=== PATIENT | male | born 1995 | race Caucasian/White ===

== ENCOUNTER 2016-06-19 14:34 | Emergency (ER) | payer OTHER ==
[2016-06-19 14:37] VITALS: O2SAT 97
[2016-06-19 14:40] VITALS: BMI 37.5
[2016-06-19] MEDS ORDERED: Sodium Chloride 0.9% 1,000 ML IV ONE (14:55)
--- NOTE | 2016-06-19 15:33 | C.PDOC ---
History Of Present Illness 20 year old male with a history of anxiety, presents to the ED with complaints of vague right sided abdominal pain for the past week. Patient states he was unable to go to work because of it. He has had multiple evaluation for vague abdominal pain in the past and notes he stopped drinking soda 3 months ago. Denies vomiting, diarrhea, fever, or any other complaints at this time. Time Seen by Provider: 06/19/16 14:52 Chief Complaint (Nursing): Abdominal Pain History Per: Patient History/Exam Limitations: no limitations Onset/Duration Of Symptoms: Days Current Symptoms Are (Timing): Still Present Severity: Mild Location Of Pain/Discomfort: RUQ, RLQ Radiation Of Pain To:: None Quality Of Discomfort: "Pain" Associated Symptoms: denies: Fever, Vomiting, Back Pain, Urinary Symptoms Past Medical History Reviewed: Historical Data, Nursing Documentation, Vital Signs Vital Signs: Last Vital Signs Temp 98.5 F 06/19/16 14:37 Pulse 57 L 06/19/16 14:37 Resp 18 06/19/16 14:37 BP 147/77 06/19/16 14:37 Pulse Ox 97 06/19/16 16:33 - Medical History PMH: Anxiety Family History: States: Unknown Family Hx - Social History Hx Tobacco Use: No Hx Alcohol Use: No Hx Substance Use: No - Immunization History Hx Tetanus Toxoid Vaccination: Yes Hx Influenza Vaccination: Yes (2016) Hx Pneumococcal Vaccination: No Review Of Systems Except As Marked, All Systems Reviewed And Found Negative. Constitutional: Negative for: Fever, Chills Cardiovascular: Negative for: Chest Pain Respiratory: Negative for: Shortness of Breath Gastrointestinal: Positive for: Abdominal Pain. Negative for: Vomiting, Diarrhea Neurological: Negative for: Weakness, Numbness Physical Exam - Physical Exam Appears: Non-toxic, No Acute Distress, Other (+Obese) Skin: Normal Color, Warm, Dry Head: Atraumatic, Normacephalic Eye(s): bilateral: Normal Inspection Oral Mucosa: Moist Chest: Symmetrical Cardiovascular: Rhythm Regular Respiratory: Normal Breath Sounds, No Accessory Muscle Use Gastrointestinal/Abdominal: Soft, No Tenderness, No Distention, No Guarding, No Rebound, Other (+Right abdomen dull to percussion. Negative Elmore's sign and McBurney's Point tenderness) Extremity: Normal ROM Neurological/Psych: Oriented x3, Normal Speech, Normal Cognition ED Course And Treatment - Laboratory Results Result Diagrams: 06/19/16 15:58 06/19/16 16:00 Lab Interpretation: Normal (ua neg, tox + THC) O2 Sat by Pulse Oximetry: 97 (Room air) Pulse Ox Interpretation: Normal - Radiology CXR: Interpreted by Me CXR Interpretation: Yes: No Acute Disease - Other Rad abd x 2 X-Ray: Interpreted by Me (+increased fecalization R side.) Progress Note: Obstructive series, Blood work, and Urinalysis ordered and reviewed. Patient treated with Toradol and IV fluids. Reevaluation Time: 16:32 Reassessment Condition: Improved (remains benign) Medical Decision Making Medical Decision Making: chronic constipation, marijuana use. Disposition Doctor Will See Patient In The: Office Counseled Patient/Family Regarding: Studies Performed, Diagnosis - Disposition Referrals: Mabel Fitch MD [Staff Provider] - Disposition: HOME/ ROUTINE Disposition Time: 16:33 Condition: GOOD Additional Instructions: trial a laxative (drink a bottle of Mag Citrate) and re-evaluate your abdominal discomfort after using the bathroom 2-3 times eat 7 servings of fresh fruits and vegetables daily. Fast walk 45 mins/day x 5 days a a week- helps with gastric motility. Stool softners to help prevent constipation. Instructions: Constipation (ED) - Clinical Impression Clinical Impression: Abdominal colic - Scribe Statement The provider has reviewed the documentation as recorded by the Scribe Blessing Alfonso. Provider Attestation: All medical record entries made by the Scribe were at my direction and personally dictated by me. I have reviewed the chart and agree that the record accurately reflects my personal performance of the history, physical exam, medical decision making, and the department course for this patient. I have also personally directed, reviewed, and agree with the discharge instructions and disposition.
[2016-06-19 15:58] LABS: RBC URINE < 1 /hpf (0-3); URINE BILIRUBIN NEGATIVE (NEGATIVE); URINE BLOOD NEGATIVE (NEGATIVE); URINE COLOR Yellow (YELLOW); URINE GLUCOSE (UA) NORMAL (Normal); URINE KETONE NEGATIVE (NEGATIVE); URINE LEUKOCYTE ESTERASE NEG Leu/uL (Negative); URINE PROTEIN NEGATIVE (NEGATIVE); URINE UROBILINOGEN NORMAL mg/dL (0.2-1.0); WBC URINE < 1 /hpf (0-5)
[2016-06-19] MEDS ORDERED: Sodium Chloride 0.9% 1,000 ML ONE (15:59)
[2016-06-19 16:07] LABS: BASO % 0.7 % (0.0-2.0); EOS # 0.2 K/uL (0.0-0.7); EOS % 2.2 % (0.0-4.0); HEMATOCRIT 43.8 % (35.0-51.0); LYMPH # 2.2 K/uL (1.0-4.3); MEAN CORPUSCULAR HEMOGLOBIN 28.8 pg (27.0-31.0); MEAN CORPUSCULAR HGB CONC 32.6 g/dL (33.0-37.0); MEAN PLATELET VOLUME 10.3 fL (7.2-11.7); MONO # 0.6 K/uL (0.0-0.8); MONO % 8.9 % (0.0-10.0); RED CELL DISTRIBUTION WIDTH 12.9 % (11.5-14.5)
--- NOTE | 2016-06-19 16:07 | RAD ---
PROCEDURE: Radiographs of the chest and abdomen (obstructive series) HISTORY: abd pain COMPARISON: No prior. TECHNIQUE: AP radiograph of the chest, with upright and supine radiographs of the abdomen. FINDINGS: CHEST: Lungs: Clear. Cardiovascular: Normal size heart. No pulmonary vascular congestion. Pleura: No pleural fluid. No pneumothorax. Other findings: None. ABDOMEN AND PELVIS: Bowel: Constipation without fecal impaction or obstruction. Free air: None. Bones: Unremarkable. Other findings: None. IMPRESSION: No acute findings related to/accounting for the clinical presentation. Concordant results with the preliminary interpretation rendered by the emergency department physician procedure.
[2016-06-19 16:11] LABS: MEAN CELL VOLUME 88.3 fL (80.0-94.0)
[2016-06-19 16:14] LABS: CHLORIDE 105 mmol/L (98-107); POTASSIUM 4.3 mmol/L (3.6-5.2); SODIUM 142 mmol/L (132-148)
[2016-06-19 16:16] LABS: ALB/GLOB RATIO 1.5 (1.0-2.1); ALKALINE PHOSPHATASE 50 U/L (38-126); AST/SGOT 21 U/L (17-59); BILIRUBIN,TOTAL 0.2 mg/dL (0.2-1.3); CARBON DIOXIDE 27 mmol/L (22-30); GFR AFRICAN-AMERICAN > 60; TOTAL PROTEIN 6.9 g/dL (6.3-8.3)
[2016-06-19 16:17] LABS: ALCOHOL SERUM < 10 mg/dl (0-10); ALT/SGPT 29 U/L (21-72); BLOOD UREA NITROGEN 14 mg/dL (9-20); CALCIUM 8.3 mg/dl (8.6-10.4); GLUCOSE,RANDOM 81 mg/dL (75-110)
[2016-06-19 16:49] VITALS: BP 124/71; PULSE 80; RESP 16; TEMP 98.4
== END 2016-06-19 17:10 | disposition home or self-care (01) ==
LOC: C.ER 14:34
DX: R10.84 Generalized abdominal pain (principal)
CPT/HCPCS: 74022; 80053; 80320; 80324; 80345; 80346; 80349; 80353; 80358; 80361; 81001; 83690; 83992; 85025; 96361; 96374; 99284; J1885; J7040

== ENCOUNTER 2017-02-28 23:16 | Emergency (ER) | payer OTHER ==
[2017-02-28 23:17] VITALS: BMI 37.5
--- NOTE | 2017-03-01 01:19 | C.PDOC ---
History Of Present Illness 21 year old male presents to the ED c/o lower back pain that started today. Patient denies trauma, injury, fall, weakness, numbness, incontinence, saddle anesthesia, urinary symptoms, sensory or motor deficits. Time Seen by Provider: 02/28/17 23:42 Chief Complaint (Nursing): Back Pain History Per: Patient History/Exam Limitations: no limitations Onset/Duration Of Symptoms: Hrs Current Symptoms Are (Timing): Still Present Quality Of Discomfort: "Pain" Severity: None Previous Symptoms: Back Pain Associated Symptoms: None Exacerbating Factor(s): Nothing Recent travel outside of the [place]: No Additional History Per: Patient Past Medical History Reviewed: Historical Data, Nursing Documentation, Vital Signs Vital Signs: Last Vital Signs Temp 99.0 F 02/28/17 23:28 Pulse 88 02/28/17 23:28 Resp 20 02/28/17 23:28 BP 125/75 02/28/17 23:28 Pulse Ox 96 03/01/17 01:23 - Medical History PMH: Anxiety Surgical History: No Surg Hx Family History: States: Unknown Family Hx - Social History Hx Tobacco Use: No Hx Alcohol Use: No Hx Substance Use: No - Immunization History Hx Tetanus Toxoid Vaccination: Yes Hx Influenza Vaccination: Yes (2016) Hx Pneumococcal Vaccination: No Review Of Systems Constitutional: Negative for: Fever, Chills Cardiovascular: Negative for: Chest Pain, Palpitations Respiratory: Negative for: Cough, Shortness of Breath Gastrointestinal: Negative for: Nausea, Vomiting, Abdominal Pain Musculoskeletal: Positive for: Back Pain Skin: Negative for: Rash Neurological: Negative for: Weakness, Numbness Physical Exam - Physical Exam Appears: Non-toxic, No Acute Distress Skin: Normal Color, Warm, Dry Head: Atraumatic, Normacephalic Eye(s): bilateral: Normal Inspection Nose: No Discharge, No Deformity Oral Mucosa: Moist Neck: Normal ROM, Supple Chest: Symmetrical Cardiovascular: Rhythm Regular, No Murmur Respiratory: Normal Breath Sounds, No Rales, No Rhonchi, No Wheezing Gastrointestinal/Abdominal: Soft, No Tenderness, No Guarding, No Rebound Back: Straight Leg Raising (positive at 40 degrees), Other (Lumbar tenderness on the right) Extremity: Normal ROM, No Pedal Edema, No Calf Tenderness, Capillary Refill (< 2 seconds), No Deformity, No Swelling Pulses: Left Dorsalis Pedis: Normal, Right Dorsalis Pedis: Normal Neurological/Psych: Oriented x3, Normal Speech, Normal Motor, Normal Sensation Gait: Steady ED Course And Treatment O2 Sat by Pulse Oximetry: 96 (On RA) Pulse Ox Interpretation: Normal - Other Rad LS Spine X-Ray X-Ray: Interpreted by Me, Viewed By Me Interpretation: No acute findings Progress Note: Plan: -Toradol 30 mg IM. -Flexeril 10 mg PO. On reevaluation patient states he feels much better after the medications was given. Patient is sleeping, stable enough for d/c, was advised to folow up with PMD in 1-2 days. Pt understands all return precautions. Reevaluation Time: 02:05 Reassessment Condition: Improved Disposition - Disposition Referrals: Mabel Fitch MD [Staff Provider] - Disposition: HOME/ ROUTINE Disposition Time: 02:06 Condition: STABLE Additional Instructions: Take meds as directed Follow up with PMD Return to ER if worse Prescriptions: Cyclobenzaprine [Cyclobenzaprine HCl] 10 mg PO HS #7 tab Ibuprofen [Motrin Tab] 800 mg PO QID #20 tab Instructions: Acute Low Back Pain (ED) Forms: [employer] (Japanese) - Clinical Impression Clinical Impression: Low back pain - PA / [employer]ACE [employer] / Resident Statement MD/DO has reviewed & agrees with the documentation as recorded. - Scribe Statement The provider has reviewed the documentation as recorded by the Scribe Gamaliel Ricahrdson All medical record entries made by the Scribe were at my direction and personally dictated by me. I have reviewed the chart and agree that the record accurately reflects my personal performance of the history, physical exam, medical decision making, and the department course for this patient. I have also personally directed, reviewed, and agree with the discharge instructions and disposition.
[2017-03-01 03:48] VITALS: BP 120/71; PULSE 57; RESP 18; TEMP 97.8; O2SAT 99
--- NOTE | 2017-03-01 08:43 | RAD ---
PROCEDURE: Radiographs of the Lumbar Spine. HISTORY: low back pain COMPARISON: No prior. FINDINGS: BONES: Normal alignment. No listhesis. No fracture. DISC SPACES: Unremarkable. OTHER FINDINGS: None. IMPRESSION: No radiographic evidence of acute fracture or subluxation at the lumbar spine.
== END 2017-03-01 03:30 | disposition home or self-care (01) ==
LOC: C.ER 23:16
DX: M54.5 Low back pain (principal)
CPT/HCPCS: 72100; 96372; 99284; J1885